=== PATIENT | female | born 1975 | race African-American/Black ===

== ENCOUNTER 2025-09-12 23:33 | Emergency (ER) | payer MEDICAID ==
[~2025-09-12] VITALS: Ht 165.1 cm; Wt 73.0 kg
[2025-09-12 23:43] VITALS: O2SAT 100
[2025-09-13] MEDS ORDERED: ONDANSETRON HCL 4MG/2ML INJ IV ONE (00:15)
[2025-09-13] MEDS: MORPHINE SULFATE 4 MG/ML INJ (FOR IV/IM USE) IV ONE (00:38)
[2025-09-13] MEDS: ACETAMINOPHEN 500MG TABLET PO ONE (00:38)
[2025-09-13] MEDS: METOCLOPRAMIDE HCL 10MG/2ML VIAL IV ONE (00:38)
[2025-09-13] MEDS: SODIUM CHLORIDE 0.9% 1,000 ML IV ONE (00:42)
[2025-09-13 00:43] LABS: CLARITY URINE CLEAR (CLEAR); COLOR URINE YELLOW (YELLOW); GLUCOSE URINE TRACE (NEGATIVE); KETONES URINE TRACE (NEGATIVE); LEUKOCYTE ESTERASE URINE 1+ (NEGATIVE); NITRITE URINE NEGATIVE (NEGATIVE); OCCULT BLOOD URINE 1+ (NEGATIVE); PH URINE 6.0 (4.5-8.0); PROTEIN URINE NEGATIVE (NEGATIVE); SPECIFIC GRAVITY URINE 1.014 (1.005-1.030); UROBILINOGEN URINE 0.2 E.U./dL (0.2-1.0)
[2025-09-13 00:53] LABS: *AMPHETAMINES SCREEN URINE NEGATIVE (NEGATIVE); *BARBITURATES SCREEN URINE NEGATIVE (NEGATIVE); *BENZODIAZEPINES SCREEN URINE NEGATIVE (NEGATIVE); *COCAINE SCREEN URINE NEGATIVE (NEGATIVE); CANNABINOID URINE SCREEN NEGATIVE (NEGATIVE); ECSTASY MDMA SCREEN URINE NEGATIVE (NEGATIVE); METHADONE URINE SCREEN NEGATIVE (NEGATIVE); OPIATES URINE SCREEN NEGATIVE (NEGATIVE); PHENCYCLIDINE URINE SCREEN NEGATIVE (NEGATIVE)
[2025-09-13 01:40] LABS: BACTERIA URINE 1+; SQUAMOUS EPITHELIAL CELL URINE 3+ /lpf (RARE/1+)
[2025-09-13 02:09] LABS: BASOPHILS % 0.4 % (0.0-2.0); EOSINOPHILS % 2.2 % (0.0-5.0); HEMATOCRIT. 40.6 % (36.0-48.0); HEMOGLOBIN. 13.5 g/dL (12.0-16.0); LYMPHOCYTES % 35.4 % (20.0-50.0); MEAN PLATELET VOLUME 7.7 fl (7.4-10.4); MONOCYTES % 6.7 % (2.0-8.0); NEUTROPHILS % 55.3 % (40.0-76.0); PLATELET 295 x1000/uL (130-400); RED BLOOD CELL COUNT 4.59 mill/uL (4.2-5.4); RED CELL DISTRIBUTION WIDTH 13.4 % (11.6-14.6)
[2025-09-13 02:24] LABS: CREATININE 0.7 mg/dL (0.6-1.0)
[2025-09-13 02:25] LABS: UREA NITROGEN BLOOD 8 mg/dL (9-23)
[2025-09-13 02:26] LABS: ASPARTATE AMINOTRANSFERASE 19 IU/L (<34); HCG SCREEN NEGATIVE
[2025-09-13 02:27] LABS: BILIRUBIN DIRECT 0.2 mg/dL (<=3.0); BILIRUBIN TOTAL 0.7 mg/dL (0.1-1.0); PROTEIN TOTAL 6.7 g/dL (6.0-8.3)
[2025-09-13 02:54] VITALS: TEMP 36.9; O2SAT 99
[2025-09-13] MEDS ORDERED: IMOD MT (02:58)
[2025-09-13] MEDS ORDERED: NITR-87 MT (02:58)
[2025-09-13] MEDS ORDERED: ONDA4TAB50 MT (02:58)
[2025-09-13] MEDS ORDERED: IBUP-1455 MT (02:58)
[2025-09-13] MEDS: NITROFURANTOIN 100MG M/M CAPSULE PO NR (03:00)
[2025-09-13 03:11] VITALS: BP 132/70; PULSE 83; RESP 14
[2025-09-13] MEDS: HYDROCODONE/ACETAMINOPHEN 5/325MG TABLET PO ONE (03:11)
== END 2025-09-13 03:19 | disposition home or self-care (01) ==
LOC: ER 23:33 → CMPBEDREQ 09-13 07:34
DX: R10.84 Generalized abdominal pain (principal); A08.39 Other viral enteritis; N39.0 Urinary tract infection, site not specified; E11.9 Type 2 diabetes mellitus without complications; Z79.4 Long term (current) use of insulin; Z88.0 Allergy status to penicillin; Z96.641 Presence of right artificial hip joint; Z98.82 Breast implant status; Z79.899 Other long term (current) drug therapy
CPT/HCPCS: 81025; 99285; 80076; 80305; 80048; 81003; 82010; 84703; 83880; 83605; 83690; 83735; 85025; 87086; 36415; 74176; 76705; 76830; 76856; 96361; 96374; 96375; J2765; J2270; J7030; Z7610 ×2